=== PATIENT | female | born 1995 | race Caucasian/White ===

== ENCOUNTER → 2016-10-22 | Outpatient (CLI) | payer BC ==
--- NOTE | 2016-10-22 13:39 | REP ---
Clinical: Sprain. Technique: AP, lateral, bilateral oblique views of the right ankle. Findings: Lateral soft tissue swelling consistent with inversion injury. No acute fracture dislocation. Joint spaces and ankle mortise are intact. Impression: Lateral swelling. No acute fracture dislocation. Signed by Antonio Smith MD 10/22/2016 01:30 P
== END ==
LOC: M WUC 12:37
PROVIDERS: ATTEND Physician Assistant
DX: S93.421A Sprain of deltoid ligament of right ankle, initial encounter (principal); X58.XXXA Exposure to other specified factors, initial encounter; Y92.89 Other specified places as the place of occurrence of the external cause

== ENCOUNTER → 2017-07-17 | Outpatient (REF) | payer BC | LOC: M LAB REF 16:34 | PROVIDERS: ATTEND Physician Assistant | DX: B27.90 Infectious mononucleosis, unspecified without complication (principal) ==

== ENCOUNTER → 2018-02-17 | Outpatient (REF) | payer BC | LOC: M LAB REF 16:09 | DX: N39.0 Urinary tract infection, site not specified (principal) | CPT/HCPCS: 87186 ==

== ENCOUNTER 2019-03-07 18:16 | Emergency (ER) | payer BC, OTHER ==
[~2019-03-07] VITALS: Ht 162.6 cm; Wt 77.6 kg
[2019-03-07 18:16] VITALS: BP 135/69
--- NOTE | 2019-03-07 18:52 | REP ---
Clinical: Fall Technique: AP, Lateral, bilateral Oblique of the right hand. Findings: Acute nondisplaced oblique fx of the third proximal phalanx. Remainder of the exam is normal. Impression: Acute nondisplaced oblique fx of the third proximal phalanx. Electronically Signed by Antonio Smith MD 03/07/2019 06:43 P
== END 2019-03-07 19:17 | disposition home or self-care (01) ==
LOC: M ED 18:16
DX: S62.642A Nondisplaced fracture of proximal phalanx of right middle finger, initial encounter for closed fracture (principal); W01.0XXA Fall on same level from slipping, tripping and stumbling without subsequent striking against object, initial encounter; Y92.018 Other place in single-family (private) house as the place of occurrence of the external cause; Z88.1 Allergy status to other antibiotic agents

== ENCOUNTER → 2019-10-22 | Outpatient (CLI) | payer OTHER | LOC: M LABSMTC 11:45 | PROVIDERS: ATTEND Family Medicine | DX: Z11.59 Encounter for screening for other viral diseases (principal); Z20.828 Contact with and (suspected) exposure to other viral communicable diseases ==

== ENCOUNTER → 2020-06-12 | Outpatient (CLI) | payer SELFPAY | LOC: M LABSMTC 10:21 | PROVIDERS: ATTEND Pediatrics | DX: Z11.59 Encounter for screening for other viral diseases (principal) ==

== ENCOUNTER → 2020-06-12 | Outpatient (REF) | payer OTHER | LOC: M LAB REF 15:50 | PROVIDERS: ATTEND Physician Assistant | DX: J02.9 Acute pharyngitis, unspecified (principal); J06.9 Acute upper respiratory infection, unspecified; Z20.828 Contact with and (suspected) exposure to other viral communicable diseases ==

== ENCOUNTER → 2020-07-22 | Outpatient (CLI) | payer OTHER | LOC: M LABSMTC 11:42 | PROVIDERS: ATTEND Pediatrics | DX: Z20.828 Contact with and (suspected) exposure to other viral communicable diseases (principal) ==

== ENCOUNTER → 2021-05-01 | Outpatient (REF) | payer OTHER | LOC: M EMP 16:46 | PROVIDERS: ATTEND Pediatrics | DX: Z11.52 Encounter for screening for COVID-19 (principal) ==

== ENCOUNTER → 2021-05-05 | Outpatient (REF) ==
[2021-05-05 14:09] LABS: RSV AMPLIFICATION NEGATIVE (NEGATIVE)
== END ==
LOC: M LABSMTC 10:21
PROVIDERS: ATTEND Pediatrics
DX: Z11.52 Encounter for screening for COVID-19 (principal)

== ENCOUNTER → 2021-06-11 | Outpatient (REF) | payer BC | LOC: M LAB REF 21:32 | PROVIDERS: ATTEND Physician Assistant Medical | DX: R50.9 Fever, unspecified (principal); J02.9 Acute pharyngitis, unspecified ==

== ENCOUNTER → 2021-06-12 | Outpatient (REF) | LOC: M EMP 08:18 | PROVIDERS: ATTEND Family Medicine | DX: Z11.52 Encounter for screening for COVID-19 (principal); Z20.822 Contact with and (suspected) exposure to COVID-19 ==

== ENCOUNTER → 2021-08-02 | Outpatient (REF) | LOC: M LABSMTC 09:35 | PROVIDERS: ATTEND Family Medicine | DX: Z11.52 Encounter for screening for COVID-19 (principal) ==

== ENCOUNTER 2022-06-28 23:49 | Emergency (ER) | payer BC, OTHER ==
[~2022-06-28] VITALS: Ht 160 cm; Wt 75.0 kg
[2022-06-29 04:13] VITALS: BP 124/72
== END 2022-06-29 04:14 | disposition home or self-care (01) ==
LOC: M ED 23:49
DX: Z77.21 Contact with and (suspected) exposure to potentially hazardous body fluids (principal)

== ENCOUNTER → 2022-10-07 | Outpatient (REF) | LOC: M LABSMTC 12:09 | PROVIDERS: ATTEND Family Medicine | DX: Z11.52 Encounter for screening for COVID-19 (principal) ==

== ENCOUNTER → 2023-04-05 | Outpatient (REF) | payer BC | LOC: M LAB REF 11:12 | PROVIDERS: ATTEND Physician Assistant | DX: R30.0 Dysuria (principal) ==

== ENCOUNTER → 2023-07-08 | Outpatient (REF) | LOC: M EMP 09:25 | PROVIDERS: ATTEND Family Medicine | DX: Z11.52 Encounter for screening for COVID-19 (principal) ==

== ENCOUNTER → 2023-10-29 | Outpatient (REF) ==
[2023-10-29 16:08] LABS: RSV AMPLIFICATION NEGATIVE (NEGATIVE)
== END ==
LOC: M EMP 13:56
PROVIDERS: ATTEND Family Medicine
DX: Z20.9 Contact with and (suspected) exposure to unspecified communicable disease (principal)

== ENCOUNTER → 2023-11-11 | Outpatient (REF) | payer BC | LOC: M PLALAB 10:10 | PROVIDERS: ATTEND Advanced Practice Midwife | DX: Z34.01 Encounter for supervision of normal first pregnancy, first trimester (principal); Z53.8 Procedure and treatment not carried out for other reasons ==

== ENCOUNTER → 2023-11-20 | Outpatient (CLI) | payer BC ==
[2023-11-20 10:35] LABS: HEMATOCRIT 37.2 % (36.0-47.0); HEMOGLOBIN 12.8 g/dl (12.0-15.5); MEAN CORPUSCULAR HEMOGLOBIN 30.5 pg (27.0-33.0); MEAN CORPUSCULAR HGB CONC 34.4 g/dl (32.0-36.5); MEAN CORPUSCULAR VOLUME 88.8 fl (80.0-96.0); PLATELET COUNT, AUTOMATED 232 10^3/uL (150-450); RED BLOOD COUNT 4.19 10^6/uL (4.00-5.40); WHITE BLOOD COUNT 6.8 10^3/uL (4.0-10.0)
[2023-11-20 11:17] LABS: HIV 1&2 SCREEN NEGATIVE (NEGATIVE)
[2023-11-20 11:26] LABS: HEPATITIS C VIRUS ABY INDEX < 0.02 INDEX (<0.8)
[2023-11-20 12:29] LABS: GC DNA AMPLIFICATION NEGATIVE (NEGATIVE)
== END ==
LOC: M PLALAB 07:38
PROVIDERS: ATTEND Advanced Practice Midwife
DX: Z34.01 Encounter for supervision of normal first pregnancy, first trimester (principal)

== ENCOUNTER → 2023-12-15 | Outpatient (CLI) | payer BC | LOC: M PLALAB 08:56 | PROVIDERS: ATTEND Obstetrics & Gynecology | DX: Z01.89 Encounter for other specified special examinations (principal) ==

== ENCOUNTER → 2024-01-05 | Outpatient (CLI) | payer BC | LOC: M WHC 10:44 | PROVIDERS: ATTEND Obstetrics & Gynecology | DX: Z34.92 Encounter for supervision of normal pregnancy, unspecified, second trimester (principal); Z3A.18 18 weeks gestation of pregnancy ==

== ENCOUNTER → 2024-03-01 | Outpatient (CLI) | payer BC ==
[2024-03-01 11:29] LABS: HEMATOCRIT 39.3 % (36.0-47.0); HEMOGLOBIN 13.2 g/dl (12.0-15.5); MEAN CORPUSCULAR HEMOGLOBIN 30.4 pg (27.0-33.0); MEAN CORPUSCULAR HGB CONC 33.6 g/dl (32.0-36.5); MEAN CORPUSCULAR VOLUME 90.6 fl (80.0-96.0); PLATELET COUNT, AUTOMATED 252 10^3/uL (150-450); RED BLOOD COUNT 4.34 10^6/uL (4.00-5.40); WHITE BLOOD COUNT 7.8 10^3/uL (4.0-10.0)
[2024-03-01 11:58] LABS: GLUCOSE CHALLENGE TEST 1 HOUR 81 MG/DL (LESS THAN 140)
[2024-03-01 12:33] LABS: HIV 1&2 SCREEN NEGATIVE (NEGATIVE)
[2024-03-01 12:41] LABS: HEPATITIS C VIRUS ABY INDEX < 0.02 INDEX (<0.8)
[2024-03-01 12:50] LABS: GC DNA AMPLIFICATION NEGATIVE (NEGATIVE)
== END ==
LOC: M PLALAB 08:18
PROVIDERS: ATTEND Advanced Practice Midwife
DX: Z34.82 Encounter for supervision of other normal pregnancy, second trimester (principal)

== ENCOUNTER → 2024-03-01 | Outpatient (CLI) | payer BC | LOC: M WHC 09:52 | PROVIDERS: ATTEND Advanced Practice Midwife | DX: Z34.82 Encounter for supervision of other normal pregnancy, second trimester (principal) ==

== ENCOUNTER → 2024-05-10 | Outpatient (REF) | payer BC | LOC: M SFHCWAGY 16:59 | PROVIDERS: ATTEND Specialist | DX: Z36.85 Encounter for antenatal screening for Streptococcus B (principal); Z3A.36 36 weeks gestation of pregnancy ==

== ENCOUNTER → 2024-05-19 | Outpatient (REF) | payer BC ==
[2024-05-19 19:25] LABS: % LABILE ALKALINE PHOSPHATASE 16.96 %
== END ==
LOC: M LAB REF 16:34
PROVIDERS: ATTEND Internal Medicine
DX: Z00.00 Encounter for general adult medical examination without abnormal findings (principal); R74.8 Abnormal levels of other serum enzymes

== ENCOUNTER 2024-06-05 23:49 | Inpatient (IN) | payer BC ==
[~2024-06-05] VITALS: Ht 160 cm; Wt 79.3 kg
[2024-06-06] VITALS (14 sets, daily range): BP systolic 128–159; BP diastolic 61–95; O2SAT 96–98
[2024-06-06] MEDS ORDERED: OXYTOCIN INJ 10UNITS/ML 1ML VIAL IV PRN (00:15)
[2024-06-06] MEDS ORDERED: OXYTOCIN INJ 10UNITS/ML 1ML VIAL IM PRN (00:15)
[2024-06-06] MEDS ORDERED: TRANEXAMIC ACID INJection 1,000 MG in NS 100 ML IV PRN (00:15)
[2024-06-06] MEDS ORDERED: OXYTOCIN DRIP 30 UNITS in IV 1 EA IV PRN (00:15)
[2024-06-06] MEDS ORDERED: LIDOCAINE 1% MDV 20ML VIAL INFIL PRN (00:15)
[2024-06-06] MEDS ORDERED: METHYLERGONOVINE MALEATE 0.2MG/ML 1ML VIAL IM PRN (00:15)
[2024-06-06] MEDS ORDERED: CARBOPROST TROMETHAMINE 250 MCG/ML AMP IM PRN (00:15)
[2024-06-06 00:45] LABS: HEMATOCRIT 40.3 % (36.0-47.0); HEMOGLOBIN 13.8 g/dl (12.0-15.5); MEAN CORPUSCULAR HEMOGLOBIN 29.3 pg (27.0-33.0); MEAN CORPUSCULAR HGB CONC 34.2 g/dl (32.0-36.5); MEAN CORPUSCULAR VOLUME 85.6 fl (80.0-96.0); PLATELET COUNT, AUTOMATED 175 10^3/uL (150-450); RED BLOOD COUNT 4.71 10^6/uL (4.00-5.40); WHITE BLOOD COUNT 7.8 10^3/uL (4.0-10.0)
[2024-06-06] MEDS: AMPICILLIN SOD 2 GM in DEXTROSE 5% (D5W) MINI-BAG PLU 100 ML IV SCH (00:57)
[2024-06-06 01:17] LABS: HEPATITIS C VIRUS ABY INDEX < 0.02 INDEX (<0.8)
[2024-06-06] MEDS ORDERED: LR 500 ML IV PRN (02:10)
[2024-06-06] MEDS ORDERED: ONDANSETRON 4MG 2ML VIAL IV PRN (02:10)
[2024-06-06] MEDS ORDERED: EPIDURAL/PCA KEYS XX PRN (02:10)
[2024-06-06] MEDS ORDERED: diphenhydrAMINE 50MG/ML VIAL IV PRN (02:10)
[2024-06-06] MEDS ORDERED: ePHEDrine SULFATE 25 MG/5 ML(5MG/ML) SYRINGE IVP PRN (02:10)
[2024-06-06] MEDS ORDERED: NALOXONE INJ 0.4MG/1ML VIAL IV PRN (02:10)
[2024-06-06] MEDS: LACTATED RINGER'S 1000 ML IV STA (02:12)
[2024-06-06] MEDS: LR 1,000 ML IV SCH (02:13)
[2024-06-06] MEDS: FENTANYL/ROPIVACAINE/NACL BAG 100 ML EPIDURAL SCH (02:28)
[2024-06-06 04:44] LABS: CORD GAS ABE A -6.7; CORD GAS ABE V -6.5; CORD GAS HCO3 A 23.3 MMOL/L; CORD GAS HCO3 V 19.6 MMOL/L; CORD GAS O2 SAT A 18.3 %; CORD GAS O2 SAT V 61.8 %; CORD GAS PCO2 V 41.3 mmHg; CORD GAS PH A 7.172 UNITS; CORD GAS PH V 7.294 UNITS; CORD GAS PO2 A 13.7 mmHg; CORD GAS PO2 V 26.2 mmHg; CORD GAS SBC A 17.1 MMOL/L; CORD GAS SBC V 18.3 MMOL/L; CORD GAS TCO2 A 25.3 MMOL/L; CORD GAS TCO2 V 20.9 MMOL/L
[2024-06-06] MEDS: OXYTOCIN DRIP 30 UNITS in IV 1 EA IV PRN (04:47)
[2024-06-06] MEDS ORDERED: ACETAMINOPHEN 325 MG TAB PO PRN (04:50)
[2024-06-06] MEDS ORDERED: ACETAMINOPHEN 500 MG TAB PO PRN (04:50)
[2024-06-06] MEDS ORDERED: METHYLERGONOVINE MALEATE 0.2 MG TAB PO PRN (04:50)
[2024-06-06] MEDS ORDERED: DOCUSATE SODIUM 100MG CAPSULE PO PRN (04:50)
[2024-06-06] MEDS ORDERED: RHOGAM 300MCG (1500IU) INJ IM SCH (04:50)
[2024-06-06] MEDS ORDERED: OXYTOCIN DRIP 30 UNITS in IV 1 EA IV SCH (04:50)
[2024-06-06] MEDS ORDERED: IBUPROFEN 600MG TAB PO PRN (04:50)
[2024-06-06] MEDS: PRENATAL VITAMINS CHEWABLE TABLET PO SCH (07:47)
[2024-06-06] MEDS: DIBUCAINE 1% OINTMENT 30GM TOP PRN (08:05)
[2024-06-06] MEDS: IBUPROFEN 800 MG TAB PO PRN (23:25)
[2024-06-07 06:00] VITALS: BP 130/81; O2SAT 97
[2024-06-07 18:00] VITALS: BP 132/69; O2SAT 96
[2024-06-08 06:00] VITALS: BP 119/77; O2SAT 99
[2024-06-08] MEDS ORDERED: ACET-683 PO (07:07)
[2024-06-08] MEDS ORDERED: IBUP80TA PO (07:07)
[2024-06-08] MEDS ORDERED: MEASLES,MUMPS,RUBELLA VACCINE INJ (MMR-II) SC.IMMUN ONE (09:00)
[2024-06-08] MEDS: FLUZONE VACCINE TRIVALENT PF(2024-25) 0.5ML SYRINGE IM.IMMUN ONE (12:46)
== END 2024-06-08 14:00 | disposition home or self-care (01) | DRG 560 ==
LOC: M LDO 23:49 → M LDI 06-06 00:14 → M OBS 06-06 06:28
PROVIDERS: ADMIT Obstetrics & Gynecology; ATTEND Obstetrics & Gynecology
PROC: 10E0XZZ Delivery of Products of Conception, External Approach (ICD-10-PCS; principal; 2024-06-06)
DX: O69.81X0 Labor and delivery complicated by cord around neck, without compression, not applicable or unspecified (principal); Z37.0 Single live birth; Z3A.40 40 weeks gestation of pregnancy; O99.824 Streptococcus B carrier state complicating childbirth

== ENCOUNTER → 2025-06-17 | Outpatient (REF) | payer OTHER ==
[~2025-06-17] MED LIST: ACET-683 PO; IBUP80TA PO
== END ==
LOC: M PLALAB 10:10
PROVIDERS: ATTEND Advanced Practice Midwife
DX: Z34.80 Encounter for supervision of other normal pregnancy, unspecified trimester (principal)

== ENCOUNTER → 2025-06-28 | Outpatient (CLI) | payer OTHER ==
[2025-06-28 17:03] LABS: PLATELET COUNT, AUTOMATED 307 10^3/uL (150-450)
[2025-06-28 18:20] LABS: Trichomonas vaginalis (AMP) NOT DETECTED (NEGATIVE)
[2025-06-28 18:43] LABS: GC DNA AMPLIFICATION NEGATIVE (NEGATIVE)
[2025-06-28 19:46] LABS: HEPATITIS C VIRUS ABY INDEX < 0.02 INDEX (<0.8); HIV 1&2 SCREEN NEGATIVE (NEGATIVE)
== END ==
LOC: M PLALAB 14:33
PROVIDERS: ATTEND Advanced Practice Midwife
DX: Z34.80 Encounter for supervision of other normal pregnancy, unspecified trimester (principal)